=== PATIENT | male | born 1955 | race Caucasian/White ===

== ENCOUNTER 2023-02-27 07:54 | Day surgery (SDC) | payer MEDICARE, MEDICAID, SELFPAY ==
--- NOTE | 2023-01-15 09:07 | HO.ANESPROP2 ---
HPI - Anesthesia Eval Consult details Narrative: 67yo M for Colonoscopy [facility] Past Medical History Medical History (Updated 01/15/23 @ 07:57 by Estela Carrasco, RN) Paranoid schizophrenia Surgical History Surgical History (Updated 01/15/23 @ 07:57 by Estela Carrasco, RN) H/O colonoscopy Meds Allergies Allergy/AdvReac Type Severity Reaction Status Date / Time No Known Allergies Allergy Verified 01/15/23 07:57 Home Medications Medication Instructions Recorded Confirmed Last Taken Type acetaminophen 650 mg 1,300 mg PO Q8H PRN Pain 01/15/23 01/15/23 Unknown History tablet,extended release aluminum-mag hydroxide-simethicone 10 ml PO QID PRN Heartburn 01/15/23 01/15/23 Unknown History 200 mg-200 mg-20 mg/5 mL oral susp (Antacid Anti-Gas) cholecalciferol (vitamin D3) 1,250 PO 01/15/23 Unknown History mcg (50,000 unit) capsule clozapine 200 mg tablet 200 mg PO BEDTIME 01/15/23 01/15/23 Unknown History docusate sodium 100 mg capsule 100 mg PO DAILY PRN Constipation 01/15/23 01/15/23 Unknown History (DOK) ferrous sulfate 325 mg (65 mg 325 mg PO 3XW 01/15/23 01/15/23 Unknown History iron) tablet sertraline 100 mg tablet 100 mg PO DAILY 01/15/23 01/15/23 Unknown History trazodone 100 mg tablet 100 mg PO BEDTIME 01/15/23 01/15/23 Unknown History Exam Exam Date and Time: January 15, 2023 0907 Assessment and Plan Assessment Anesthesia Assessment: Chart Reviewed
[2023-02-23 14:01] VITALS: BMI 25.0
--- NOTE | 2023-02-26 08:42 | HO.ANESPROP2 ---
Documented by User: Pebbles Yun NP 02/26/23 08:42 HPI - Anesthesia Eval Consult details Narrative: 67yo M for [facility] Past Medical History Medical History (Updated 02/27/23 @ 08:34 by Lesa Pollock, RN) Paranoid schizophrenia Surgical History Surgical History H/O colonoscopy Social History Social History (Updated 02/23/23 @ 14:00 by Edith Laguerre RN) Patient Tobacco Use Status: Current everyday Tobacco user Tobacco use type: Pipe Are you DNR?: No Advance Directives: No Advance Directives Information Provided: Yes Nutrition Risks: No Nutritional Risk Meds Allergies Allergy/AdvReac Type Severity Reaction Status Date / Time No Known Allergies Allergy Verified 01/15/23 07:57 Home Medications Medication Instructions Recorded Confirmed Last Taken Type acetaminophen 650 mg 1,300 mg PO Q8H PRN Pain 01/15/23 01/15/23 Unknown History tablet,extended release aluminum-mag hydroxide-simethicone 10 ml PO QID PRN Heartburn 01/15/23 01/15/23 Unknown History 200 mg-200 mg-20 mg/5 mL oral susp (Antacid Anti-Gas) clozapine 200 mg tablet 200 mg PO BEDTIME 01/15/23 01/15/23 Unknown History docusate sodium 100 mg capsule 100 mg PO DAILY PRN Constipation 01/15/23 01/15/23 Unknown History (DOK) ferrous sulfate 325 mg (65 mg 325 mg PO 3XW 01/15/23 01/15/23 Unknown History iron) tablet sertraline 100 mg tablet 100 mg PO DAILY 01/15/23 01/15/23 Unknown History trazodone 100 mg tablet 100 mg PO BEDTIME 01/15/23 01/15/23 Unknown History cholecalciferol (vitamin D3) 125 125 mcg PO DAILY 02/23/23 02/23/23 Unknown History mcg (5,000 unit) tablet (Vitamin D3) Exam Exam Date and Time: February 26, 2023 0842 Height,Weight and Vital Signs: Height 6 ft Weight 83.461 kg Assessment and Plan Assessment Anesthesia Assessment: Chart Reviewed Documented by User: Kika Bose MD 02/27/23 09:35 PMFSH Active Problems Active Problems: Paranoid schizophrenia Smokes pipe - last this morning H/o ETOH, marijuana use 3 years ago Past Medical History Medical History (Updated 02/27/23 @ 08:34 by Lesa Pollock RN) Paranoid schizophrenia Family History Family history of problems with anesthesia: No Surgical History Surgical History H/O colonoscopy History of Problems with Anesthesia: No Social History Social History (Updated 02/23/23 @ 14:00 by Edith Laguerre RN) Patient Tobacco Use Status: Current everyday Tobacco user Tobacco use type: Pipe Are you DNR?: No Advance Directives: No Advance Directives Information Provided: Yes Nutrition Risks: No Nutritional Risk Meds Allergies Allergy/AdvReac Type Severity Reaction Status Date / Time No Known Allergies Allergy Verified 01/15/23 07:57 Home Medications Medication Instructions Recorded Confirmed Last Taken Type acetaminophen 650 mg 1,300 mg PO Q8H PRN Pain 01/15/23 01/15/23 Unknown History tablet,extended release aluminum-mag hydroxide-simethicone 10 ml PO QID PRN Heartburn 01/15/23 01/15/23 Unknown History 200 mg-200 mg-20 mg/5 mL oral susp (Antacid Anti-Gas) clozapine 200 mg tablet 200 mg PO BEDTIME 01/15/23 01/15/23 Unknown History docusate sodium 100 mg capsule 100 mg PO DAILY PRN Constipation 01/15/23 01/15/23 Unknown History (DOK) ferrous sulfate 325 mg (65 mg 325 mg PO 3XW 01/15/23 01/15/23 Unknown History iron) tablet sertraline 100 mg tablet 100 mg PO DAILY 01/15/23 01/15/23 Unknown History trazodone 100 mg tablet 100 mg PO BEDTIME 01/15/23 01/15/23 Unknown History cholecalciferol (vitamin D3) 125 125 mcg PO DAILY 02/23/23 02/23/23 Unknown History mcg (5,000 unit) tablet (Vitamin D3) Exam Height,Weight and Vital Signs: Height 6 ft Weight 83.461 kg Vital Signs Temp Pulse Resp BP Pulse Ox O2 Del Method 02/27/23 09:17 97 F 70 18 96/69 96 Room Air 02/27/23 08:00 98 F 85 18 96/68 97 Room Air Airway Mallampati Class: I TM Dist: >3cm Neck ROM: Full Loose/Missing/Broken Teeth: Yes (Edentulous) Heart: RRR ?murmur Lungs: CTAB Assessment and Plan Assessment Anesthesia Assessment: Anesthesia Plan Discussed Final Anesthetic Review Family History of Problems with Anesthesia: No History of Problems with Anesthesia: No NPO: Yes ASA Class: III Final Preanesthetic Review: No Changes in Pt Med Stat, Meds/Allgs Chart Reviewed, Consent Obtained/Reviewed and Anes Risks/Benef Reviewed Patient Risk: Intermediate Procedure Risk: Low Assessment/Block/Sedation in SS: Assess/Block/Sedation-SS Anesthetic Plan Anesthetic Plan: MAC: Disposition: Standard PACU
[2023-02-27 08:00] VITALS: BP 96/68; PULSE 85; RESP 18; TEMP 36.6; O2SAT 97
--- NOTE | 2023-02-27 08:33 | PC.NURSE ---
fleets given liquid brown results no solids
[2023-02-27] MEDS: Lactated Ringers 1,000 ML 100 ML IVCONT (08:45)
[2023-02-27 09:17] VITALS: BP 96/69; PULSE 70; RESP 18; TEMP 36.1; O2SAT 96
--- NOTE | 2023-02-27 09:46 | P.HPSUR_ITS ---
Pre-Procedural Eval Section A Date of Service: 02/27/23 Section B Chief Complaint: Encounter for screening for malignant neoplasm of Details of Present Illness: see H&P no changes Relevant Family History (Specify if Yes): No Relevant Social History: None Present Medications: see Short Stay Collaborative assessment Medical History: No relevant PMH History of Previous Operations: No relevant previous surgery Allergies: Allergies Allergy/AdvReac Type Severity Reaction Status Date / Time No Known Allergies Allergy Verified 01/15/23 07:57 Review of Systems Sugical H&P ROS: Negative: Constitution, Cardiovascular, Respiratory, Neurolo gical, Psychiatric, Hem-Onc, Allergic/Immunologic, Gastrointestinal, Genitourinary, Musculoskeletal, Integumentary, Endocrine and Eyes/Ears/Nose/Throat Exam Surgical H&P Exam: Normal: HEENT, Normal: Heart, Normal: Lungs, Normal: Extremities, Normal: Abdomen, Normal: Skin and Normal: Neurological Plan Diagnosis/Plan: Unchanged I have reviewed the history and physical and performed a pertinent physical examination on my patient. No changes have occurred unless specified. Time Spent With Patient Time: Total time managing care of this patient today ____ minutes.
--- NOTE | 2023-02-27 10:26 | P.BOP_ITS ---
Brief Operative Note Date of Service: 02/27/23 Pre-op diagnosis: screening Post-op diagnosis: same Procedure: colonoscopy Surgeon: Phillip Allen MD Anesthesia: MAC Was an Director Of Strategic Initiatives used for this Procedure?: No Estimated blood loss (mL): 2 Pathology: other Condition: stable Disposition: PACU
[2023-02-27 10:29] VITALS: BP 88/52; PULSE 73; RESP 16; TEMP 36.6; O2SAT 98
[2023-02-27 10:44] VITALS: BP 91/48; PULSE 60; RESP 18; TEMP 36.6; O2SAT 97
--- NOTE | 2023-02-27 19:04 | OP_ITS ---
DATE OF SERVICE: 02/27/2023 SURGEON: Phillip Allen MD INDICATIONS: Colon cancer screening and prior history of colon polyps. PREOPERATIVE DIAGNOSIS: POSTOPERATIVE DIAGNOSIS: PROCEDURE PERFORMED: Colonoscopy to the cecum with snare polypectomy and biopsy. ESTIMATED BLOOD LOSS: COMPLICATIONS: ANESTHESIA: Monitored anesthesia care. ASSISTANTS: SPECIMENS: DESCRIPTION OF PROCEDURE: A history and physical were performed. The risks and benefits of the procedure were explained to the patient, and informed consent was obtained. The patient was placed in the left lateral decubitus position. A digital rectal exam was performed and was found to be normal. The Olympus pediatric video colonoscope was introduced into the rectum and advanced to the cecum. The cecum was identified by transillumination, palpation, and identification of the ileocecal valve. Examination was performed and the scope was removed. He tolerated the procedure well and was taken to recovery in stable condition. FINDINGS: The terminal ileum was not examined. The visualized colonic mucosa was normal. There was some liquid stool left, which was washed and suctioned as best possible. Polyps were identified and removed as follows: In the cecum was a less than 5 mm sessile polyp, which was removed with biopsy forceps; two other polyps at the right colon at 30 cm measuring approximately 6 mm were removed with a hot snare and recovered via suction. There was a tattoo dell between 15 and 20 cm in the rectum, which showed no recurrent polypoid tissue. Retroflexed examination was otherwise normal. IMPRESSION: Colon polyps. RECOMMENDATION: Follow up with the biopsy results. MD APRYL Colbert/ALAYNAL / [id number]
== END 2023-02-27 11:15 | disposition home or self-care (01) ==
PROVIDERS: PCP Internal Medicine; Visit Provider Internal Medicine Gastroenterology
PROC: 0DJD8ZZ Inspection of Lower Intestinal Tract, Via Natural or Artificial Opening Endoscopic (ICD-10-PCS; CPT 45378; principal; 2023-02-27 09:10)
DX: Z12.11 Encounter for screening for malignant neoplasm of colon (principal); Z86.010 Personal history of colon polyps; D12.0 Benign neoplasm of cecum; K63.5 Polyp of colon; K51.40 Inflammatory polyps of colon without complications; F20.0 Paranoid schizophrenia; Z79.899 Other long term (current) drug therapy; F17.290 Nicotine dependence, other tobacco product, uncomplicated
CPT/HCPCS: 45385; 45380; 88305; J2704